=== PATIENT | female | born 1945 | race Caucasian/White ===

== ENCOUNTER 2021-08-16 13:30 | Observation (INO) ==
[2021-08-16 16:16] LABS: Basophils % 0.2 % (0.0-0.8); Eosinophils # 0.1 10*3/uL (0.0-0.87); Eosinophils % 0.3 % (0.00-10.9); Hematocrit 31.9 VOL% (35.7-47.0); Hemoglobin 10.7 GM/DL (12.0-16.0); Immature Granulocytes % 0.5 %; Immature Granulocytes Absolute 0.08 #; Lymphocytes # 1.1 10*3/uL (1.4-4.0); Lymphocytes % 7.2 % (21.3-54.2); Mean Corpuscular HGB Conc 33.5 GM/DL (32-36); Mean Corpuscular Volume 100.3 FL (87-102); Mean Platelet Volume 10.9 FL (9.6-12.0); Monocytes % 8.7 % (1.7-12.7); Neutrophils % 83.1 % (38.7-73.9); Platelet Count 71 T/CUMM (130-400); Red Blood Count 3.18 MC/CUMM (3.8-5.5); Red Cell Distribution Width 16.3 % (9.3-17.3); White Blood Count 15.8 T/CUMM (4-12)
[2021-08-16 16:38] LABS: Albumin 2.5 G/DL (3.4-5.0); Bilirubin,Total 2.4 MG/DL (0.20-1.00); Potassium 2.8 MMOL/L (3.5-5.1)
[2021-08-16] MEDS ORDERED: POTASSIUM CHLORIDE 20 MEQ TABLET PO STA (16:53)
[2021-08-16 17:10] LABS: Mucus,Urine Occasional /LPF (Occasional); RBC,Urine 1 /HPF (0-4); Squamous Epithelial Cell,Urine Occasional /HPF (0-10)
[2021-08-16 17:11] LABS: Bilirubin,Urine Negative (Negative); Blood, Urine Trace mg/dL (Negative); Glucose,Urine (UA) Negative (Negative); Ketones,Urine Negative (Negative); Nitrite,Urine Negative (Negative); Protein,Urine Negative; Urine Appearance Clear (Clear); Urine Color Dark yellow (Yellow); Urine Urobilinogen < 2.0 EU/DL (<2.0); Urine pH 6.5 (4.5-8.0)
[2021-08-16] MEDS ORDERED: ONDANSETRON 4 MG/2 ML VIAL IV PRN (17:15)
[2021-08-16] MEDS ORDERED: ACETAMINOPHEN 325 MG TABLET PO PRN (17:15)
[2021-08-16 18:07] LABS: Anisocytosis Slight; Macrocytosis Slight; Poikilocytosis Few; Schistocytes Few
[2021-08-16 18:08] LABS: Elliptocytes Few; Platelet Estimate Decreased; Polychromasia Few
[2021-08-16] MEDS: LEVOFLOXACIN INJ 500 MG/100 ML PREMIX IV SCH (18:12)
[2021-08-16] MEDS: SODIUM CHLORIDE 0.9% 1,000 ML IV SCH (18:12)
[2021-08-16] MEDS: ENOXAPARIN 40 MG/0.4 ML SYRINGE SUBCUT SCH (18:12)
[2021-08-16] MEDS ORDERED: INFLUENZA VIRUS VACCINE 0.5 ML SYRINGE IM ONE (23:00)
[2021-08-17] MEDS: SODIUM CHLORIDE 0.9% 1,000 ML IV SCH ×3 (04:20→17:11)
[2021-08-17 05:42] LABS: Basophils % 0.2 % (0.0-0.8); Eosinophils # 0.2 10*3/uL (0.0-0.87); Eosinophils % 2.1 % (0.00-10.9); Hematocrit 30.2 VOL% (35.7-47.0); Hemoglobin 10.2 GM/DL (12.0-16.0); Immature Granulocytes % 0.4 %; Immature Granulocytes Absolute 0.04 #; Lymphocytes # 1.2 10*3/uL (1.4-4.0); Lymphocytes % 13.8 % (21.3-54.2); Mean Corpuscular HGB Conc 33.8 GM/DL (32-36); Mean Corpuscular Volume 101.7 FL (87-102); Mean Platelet Volume 11.4 FL (9.6-12.0); Monocytes % 8.7 % (1.7-12.7); Neutrophils % 74.8 % (38.7-73.9); Platelet Count 64 T/CUMM (130-400); Red Blood Count 2.97 MC/CUMM (3.8-5.5); Red Cell Distribution Width 16.5 % (9.3-17.3); White Blood Count 8.9 T/CUMM (4-12)
[2021-08-17 05:50] LABS: Calcium 8.7 MG/DL (8.5-10.1); Osmolality,Calculated 285.7 MOS/KG (273-304); Potassium 2.9 MMOL/L (3.5-5.1)
[2021-08-17 06:27] LABS: Hypochromia Slight; Microcytosis Slight
[2021-08-17] MEDS: PANTOPRAZOLE 40 MG TABLET PO SCH (08:07)
[2021-08-17] MEDS ORDERED: CHLORPHENIRAMINE PHENYLEPHRINE PO PRN (08:24)
[2021-08-17] MEDS ORDERED: ALBUTEROL 2.5 MG/3 ML NEB RESP TX PRN (08:24)
[2021-08-17] MEDS ORDERED: CARBOXYMETHYLCELLULOSE 1% OPH SOLN BOTH EYES PRN (08:24)
[2021-08-17] MEDS ORDERED: DICLOFENAC 1% GEL 100 GM TUBE TOP PRN (08:24)
[2021-08-17] MEDS ORDERED: METHOTREXATE 2.5 MG TABLET PO SCH (09:00)
[2021-08-17] MEDS ORDERED: NF- (Turmeric Root Extract 500 mg Capsule) PO SCH (09:00)
[2021-08-17] MEDS: MULTIVITAMIN (BEROCCA) TABLET PO SCH (10:48)
[2021-08-17] MEDS: CHOLECALCIFEROL 1,000 UNIT TABLET PO SCH (10:48)
[2021-08-17] MEDS: FOLIC ACID 1 MG TABLET PO SCH (10:48)
[2021-08-17] MEDS: FLUDROCORTISONE 0.1 MG TABLET PO SCH (10:49)
[2021-08-17] MEDS: MAGNESIUM OXIDE 400 MG TABLET PO SCH (10:49)
[2021-08-17] MEDS: LEVOTHYROXINE 100 MCG TABLET PO SCH (10:49)
[2021-08-17] MEDS: OMEGA 3 ACID ETHYL ESTERS 1 GM CAPSULE PO SCH (10:50)
[2021-08-17] MEDS: FLUTICASONE/SALMETEROL 250-50 DISKUS 14 DOSE INH SCH ×2 (10:50→21:44)
[2021-08-17] MEDS: MULTIVITAMIN PO SCH (10:53)
[2021-08-17] MEDS: POTASSIUM CHLORIDE 20 MEQ TABLET PO PRN ×2 (14:48→17:32)
[2021-08-17] MEDS: ENOXAPARIN 40 MG/0.4 ML SYRINGE SUBCUT SCH (17:32)
[2021-08-17] MEDS: LEVOFLOXACIN INJ 500 MG/100 ML PREMIX IV SCH (17:33)
[2021-08-18] MEDS: SODIUM CHLORIDE 0.9% 1,000 ML IV SCH (01:11)
[2021-08-18 08:16] VITALS: BP 138/60
[2021-08-18] MEDS: FLUDROCORTISONE 0.1 MG TABLET PO SCH (09:39)
[2021-08-18] MEDS: CHOLECALCIFEROL 1,000 UNIT TABLET PO SCH (09:39)
[2021-08-18] MEDS: POTASSIUM CHLORIDE 20 MEQ TABLET PO PRN ×3 (09:40→11:00)
[2021-08-18] MEDS: MULTIVITAMIN (BEROCCA) TABLET PO SCH (09:40)
[2021-08-18] MEDS: MAGNESIUM OXIDE 400 MG TABLET PO SCH (09:40)
[2021-08-18] MEDS: LEVOTHYROXINE 100 MCG TABLET PO SCH (09:40)
[2021-08-18] MEDS: OMEGA 3 ACID ETHYL ESTERS 1 GM CAPSULE PO SCH (09:40)
[2021-08-18] MEDS: FOLIC ACID 1 MG TABLET PO SCH (09:40)
[2021-08-18] MEDS: PANTOPRAZOLE 40 MG TABLET PO SCH (09:40)
[2021-08-18] MEDS: FLUTICASONE/SALMETEROL 250-50 DISKUS 14 DOSE INH SCH (09:41)
[2021-08-18] MEDS: MULTIVITAMIN PO SCH (12:00)
== END 2021-08-18 11:16 | disposition home or self-care (01) ==
LOC: EDUNIT# → EDBD → N.TELES 13:30 → N.ED 13:30 → N.TELES 22:24
PROVIDERS: ADMIT Family Medicine; ATTEND Family Medicine

== ENCOUNTER 2022-06-24 09:48 | Inpatient (IN) ==
[2022-06-24 10:06] LABS: Bilirubin,Urine Negative (Negative); Blood, Urine Negative (Negative); Glucose,Urine (UA) Negative (Negative); Ketones,Urine Negative (Negative); Nitrite,Urine Negative (Negative); Protein,Urine Negative (Negative); Urine Appearance Slightly Cloudy (Clear); Urine Color Dark Yellow (Yellow); Urine pH 7.5 (4.5-8.0)
[2022-06-24] MEDS ORDERED: SODIUM CHLORIDE 0.9% 1,000 ML IV STA (10:06)
[2022-06-24 10:08] LABS: Mucus,Urine Occasional /LPF (Occasional); RBC,Urine 2 /HPF (0-4)
[2022-06-24 10:23] LABS: Basophils % 0.2 % (0.0-0.8); Eosinophils # 0.1 10*3/uL (0.0-0.87); Eosinophils % 0.5 % (0.00-10.9); Hematocrit 36.6 VOL% (35.7-47.0); Hemoglobin 12.1 GM/DL (12.0-16.0); Immature Granulocytes % 0.7 %; Immature Granulocytes Absolute 0.06 #; Lymphocytes # 0.9 10*3/uL (1.4-4.0); Lymphocytes % 9.4 % (21.3-54.2); Mean Corpuscular HGB Conc 33.1 GM/DL (32-36); Mean Corpuscular Volume 100.5 FL (87-102); Mean Platelet Volume 11.6 FL (9.6-12.0); Monocytes # 0.8 10*3/uL (0.11-0.8); Monocytes % 8.7 % (1.7-12.7); Neutrophils % 80.5 % (38.7-73.9); Red Blood Count 3.64 MC/CUMM (3.8-5.5); Red Cell Distribution Width 15.3 % (9.3-17.3); White Blood Count 9.2 T/CUMM (4-12)
[2022-06-24 10:24] LABS: Platelet Count 71 T/CUMM (130-400)
[2022-06-24 10:42] LABS: Albumin 2.8 G/DL (3.4-5.0); Calcium 8.9 MG/DL (8.5-10.1); Osmolality,Calculated 288.6 MOS/KG (273-304); Potassium 3.8 MMOL/L (3.5-5.1); Total Protein 5.3 G/DL (6.4-8.2)
[2022-06-24 10:42] LABS: Barbiturates Screen,Urine Negative (Negative); Benzodiazepines Screen,Urine Negative (Negative); Cannabinoid Screen,Urine Negative (Negative); Opiate Screen,Urine Negative (Negative); Phencyclidine Screen,Urine Negative (Negative)
[2022-06-24 10:53] LABS: INR 1.5; PT Patient Result 16.1 SECS (10.1-12.1)
[2022-06-24] MEDS ORDERED: VANCOMYCIN INJ 1,000 MG in SODIUM CHLORIDE 0.9% 250 ML IV STA (11:08)
[2022-06-24] MEDS ORDERED: CEFEPIME 1,000 MG in SODIUM CHLORIDE 0.9% 100 ML IV STA (11:08)
[2022-06-24] MEDS ORDERED: ONDANSETRON 4 MG/2 ML VIAL IV PRN (11:40)
[2022-06-24] MEDS ORDERED: PROMETHAZINE 25 MG/1 ML VIAL IM PRN (11:40)
[2022-06-24] MEDS ORDERED: ACETAMINOPHEN 325 MG TABLET PO PRN (11:40)
[2022-06-24] MEDS: SODIUM CHLORIDE 0.9% 1,000 ML IV SCH (13:07)
[2022-06-24] MEDS ORDERED: VANCOMYCIN INJ 1,000 MG in SODIUM CHLORIDE 0.9% 250 ML IV ONE (14:30)
[2022-06-24] MEDS: DOCUSATE SODIUM 100 MG CAPSULE PO SCH (21:08)
[2022-06-24] MEDS ORDERED: ALBUTEROL/IPRATROPIUM 3 ML NEB RESP TX ONE (22:50)
[2022-06-25] MEDS: ALBUTEROL/IPRATROPIUM 3 ML NEB RESP TX SCH ×4 (00:08→19:45)
[2022-06-25] MEDS: SODIUM CHLORIDE 0.9% 1,000 ML IV SCH ×3 (00:11→23:57)
[2022-06-25] MEDS: methylPREDNISolone SOD SUC 40 MG/1 ML VIAL IV SCH ×3 (00:42→22:58)
[2022-06-25] MEDS: MEROPENEM 500 MG in SODIUM CHLORIDE 0.9% 100 ML IV SCH ×4 (00:42→23:58)
[2022-06-25 05:09] LABS: Basophils % 0.3 % (0.0-0.8); Hemoglobin 11.6 GM/DL (12.0-16.0); Immature Granulocytes % 0.8 %; Immature Granulocytes Absolute 0.03 #; Lymphocytes # 0.4 10*3/uL (1.4-4.0); Lymphocytes % 11.3 % (21.3-54.2); Mean Corpuscular HGB Conc 33.1 GM/DL (32-36); Mean Corpuscular Volume 99.4 FL (87-102); Mean Platelet Volume 11.8 FL (9.6-12.0); Monocytes # 0.2 10*3/uL (0.11-0.8); Monocytes % 4.3 % (1.7-12.7); Neutrophils % 82.3 % (38.7-73.9); Red Blood Count 3.52 MC/CUMM (3.8-5.5); White Blood Count 3.9 T/CUMM (4-12)
[2022-06-25 05:10] LABS: Platelet Count 62 T/CUMM (130-400)
[2022-06-25 05:23] LABS: Albumin 2.8 G/DL (3.4-5.0); Bilirubin,Total 2.6 MG/DL (0.20-1.00); Calcium 9.1 MG/DL (8.5-10.1); Osmolality,Calculated 287.7 MOS/KG (273-304); Potassium 3.6 MMOL/L (3.5-5.1); Total Protein 5.3 G/DL (6.4-8.2)
[2022-06-25 05:28] LABS: Platelet Estimate Decreased
[2022-06-25] MEDS: LEVOTHYROXINE 100 MCG TABLET PO SCH (06:20)
[2022-06-25] MEDS: FUROSEMIDE 20 MG/2 ML VIAL IV SCH (09:01)
[2022-06-25] MEDS: FLUTICASONE/SALMETEROL 250-50 DISKUS 14 DOSE INH SCH ×2 (09:02→21:51)
[2022-06-25] MEDS: FLUDROCORTISONE 0.1 MG TABLET PO SCH (09:02)
[2022-06-25] MEDS: PANTOPRAZOLE 40 MG TABLET PO SCH (09:02)
[2022-06-25] MEDS: DOCUSATE SODIUM 100 MG CAPSULE PO SCH ×2 (09:02→21:49)
[2022-06-25] MEDS: POTASSIUM CHLORIDE 20 MEQ TABLET PO SCH ×2 (09:02→21:49)
[2022-06-25] MEDS: SERTRALINE 50 MG TABLET PO SCH (09:02)
[2022-06-26] MEDS: ALBUTEROL/IPRATROPIUM 3 ML NEB RESP TX SCH ×4 (03:23→19:46)
[2022-06-26 05:21] LABS: Hematocrit 31.5 VOL% (35.7-47.0); Hemoglobin 10.6 GM/DL (12.0-16.0); Immature Granulocytes Absolute 0.05 #; Lymphocytes # 0.3 10*3/uL (1.4-4.0); Lymphocytes % 6.1 % (21.3-54.2); Mean Corpuscular HGB Conc 33.7 GM/DL (32-36); Mean Corpuscular Volume 98.7 FL (87-102); Mean Platelet Volume 10.6 FL (9.6-12.0); Monocytes # 0.2 10*3/uL (0.11-0.8); Monocytes % 3.5 % (1.7-12.7); Neutrophils % 89.4 % (38.7-73.9); Platelet Count 69 T/CUMM (130-400); Red Blood Count 3.19 MC/CUMM (3.8-5.5); Red Cell Distribution Width 14.8 % (9.3-17.3); White Blood Count 4.9 T/CUMM (4-12)
[2022-06-26 05:36] LABS: Calcium 9.2 MG/DL (8.5-10.1); Potassium 4.2 MMOL/L (3.5-5.1)
[2022-06-26 05:44] LABS: Platelet Estimate Decreased
[2022-06-26] MEDS: LEVOTHYROXINE 100 MCG TABLET PO SCH (05:57)
[2022-06-26] MEDS: SODIUM CHLORIDE 0.9% 1,000 ML IV SCH ×3 (07:07→15:07)
[2022-06-26] MEDS: FLUTICASONE/SALMETEROL 250-50 DISKUS 14 DOSE INH SCH ×2 (09:32→20:53)
[2022-06-26] MEDS: DOCUSATE SODIUM 100 MG CAPSULE PO SCH ×2 (09:33→20:53)
[2022-06-26] MEDS: POTASSIUM CHLORIDE 20 MEQ TABLET PO SCH ×2 (09:33→20:53)
[2022-06-26] MEDS: FLUDROCORTISONE 0.1 MG TABLET PO SCH (09:33)
[2022-06-26] MEDS: FUROSEMIDE 20 MG/2 ML VIAL IV SCH (09:33)
[2022-06-26] MEDS: SERTRALINE 50 MG TABLET PO SCH (09:33)
[2022-06-26] MEDS: PANTOPRAZOLE 40 MG TABLET PO SCH (09:33)
[2022-06-26] MEDS: MEROPENEM 500 MG in SODIUM CHLORIDE 0.9% 100 ML IV SCH ×3 (10:49→21:00)
[2022-06-26] MEDS: methylPREDNISolone SOD SUC 40 MG/1 ML VIAL IV SCH ×2 (14:20→23:06)
[2022-06-26 19:55] LABS: Glucose,Pleural Fluid 138 MG/DL; LDH,Body Fluid 96 U/L; Total Protein,Body Fluid < 2.0 G/DL
[2022-06-26 20:05] LABS: Lymphocytes,Pleural Fluid 15 %; Monocytes,Pleural Fluid 18 %; Neutrophils,Pleural Fluid 67 %; RBC,Pleural Fluid 69866 T/CUMM
[2022-06-27] MEDS: ALBUTEROL/IPRATROPIUM 3 ML NEB RESP TX SCH ×4 (00:37→19:42)
[2022-06-27] MEDS: SODIUM CHLORIDE 0.9% 1,000 ML IV SCH ×2 (02:31→16:29)
[2022-06-27] MEDS: MEROPENEM 500 MG in SODIUM CHLORIDE 0.9% 100 ML IV SCH ×4 (02:32→21:13)
[2022-06-27] MEDS: LEVOTHYROXINE 100 MCG TABLET PO SCH (05:13)
[2022-06-27] MEDS: methylPREDNISolone SOD SUC 40 MG/1 ML VIAL IV SCH ×2 (09:45→21:15)
[2022-06-27] MEDS: POTASSIUM CHLORIDE 20 MEQ TABLET PO SCH ×2 (09:45→21:14)
[2022-06-27] MEDS: DOCUSATE SODIUM 100 MG CAPSULE PO SCH ×2 (09:45→21:14)
[2022-06-27] MEDS: PANTOPRAZOLE 40 MG TABLET PO SCH (09:46)
[2022-06-27] MEDS: SERTRALINE 50 MG TABLET PO SCH (09:46)
[2022-06-27] MEDS: FLUDROCORTISONE 0.1 MG TABLET PO SCH (09:46)
[2022-06-27] MEDS: FUROSEMIDE 20 MG/2 ML VIAL IV SCH (09:47)
[2022-06-27] MEDS: FLUTICASONE/SALMETEROL 250-50 DISKUS 14 DOSE INH SCH ×2 (09:48→21:14)
[2022-06-27] MEDS ORDERED: ZINC OXIDE PASTE 113 GM TUBE TOP PRN (13:29)
[2022-06-27 13:59] LABS: Folate 10.78 NG/ML (5.38-24.0)
[2022-06-27] MEDS: cycloSPORINE OPH EMUL 1 VIAL BOTH EYES SCH (16:27)
[2022-06-27] MEDS: DICLOFENAC 1% GEL 100 GM TUBE TOP SCH ×3 (16:28→21:14)
[2022-06-28] MEDS: cycloSPORINE OPH EMUL 1 VIAL BOTH EYES SCH ×2 (00:09→12:02)
[2022-06-28] MEDS: ALBUTEROL/IPRATROPIUM 3 ML NEB RESP TX SCH ×4 (00:15→19:18)
[2022-06-28] MEDS: LORazepam 2 MG/1 ML VIAL IV PRN (02:38)
[2022-06-28] MEDS: MEROPENEM 500 MG in SODIUM CHLORIDE 0.9% 100 ML IV SCH ×4 (02:38→20:56)
[2022-06-28] MEDS: SODIUM CHLORIDE 0.9% 1,000 ML IV SCH ×2 (08:55→09:56)
[2022-06-28] MEDS: FUROSEMIDE 20 MG/2 ML VIAL IV SCH (08:56)
[2022-06-28] MEDS: methylPREDNISolone SOD SUC 40 MG/1 ML VIAL IV SCH ×2 (08:57→20:54)
[2022-06-28] MEDS: FLUTICASONE/SALMETEROL 250-50 DISKUS 14 DOSE INH SCH ×2 (09:00→20:55)
[2022-06-28] MEDS: DICLOFENAC 1% GEL 100 GM TUBE TOP SCH ×4 (09:00→20:56)
[2022-06-28] MEDS: POTASSIUM CHLORIDE 20 MEQ TABLET PO SCH ×2 (09:01→20:54)
[2022-06-28] MEDS: SERTRALINE 50 MG TABLET PO SCH (09:01)
[2022-06-28] MEDS: FLUDROCORTISONE 0.1 MG TABLET PO SCH (09:01)
[2022-06-28] MEDS: PANTOPRAZOLE 40 MG TABLET PO SCH (09:01)
[2022-06-28] MEDS: FOLIC ACID 1 MG TABLET PO SCH (09:01)
[2022-06-28] MEDS: DOCUSATE SODIUM 100 MG CAPSULE PO SCH ×2 (09:01→20:54)
[2022-06-28] MEDS: LEVOTHYROXINE 100 MCG TABLET PO SCH (09:01)
[2022-06-29] MEDS: LORazepam 2 MG/1 ML VIAL IV PRN (00:37)
[2022-06-29] MEDS: ALBUTEROL/IPRATROPIUM 3 ML NEB RESP TX SCH ×3 (00:43→07:33)
[2022-06-29] MEDS: cycloSPORINE OPH EMUL 1 VIAL BOTH EYES SCH (01:44)
[2022-06-29] MEDS: MEROPENEM 500 MG in SODIUM CHLORIDE 0.9% 100 ML IV SCH ×2 (03:17→09:45)
[2022-06-29] MEDS: LEVOTHYROXINE 100 MCG TABLET PO SCH (06:18)
[2022-06-29] MEDS ORDERED: FUROSEMIDE 40 MG/4 ML VIAL IV SCH (09:00)
[2022-06-29] MEDS: DICLOFENAC 1% GEL 100 GM TUBE TOP SCH (09:45)
[2022-06-29] MEDS: FLUTICASONE/SALMETEROL 250-50 DISKUS 14 DOSE INH SCH (09:45)
[2022-06-29] MEDS: FLUDROCORTISONE 0.1 MG TABLET PO SCH (09:47)
[2022-06-29] MEDS: FOLIC ACID 1 MG TABLET PO SCH (09:47)
[2022-06-29] MEDS: POTASSIUM CHLORIDE 20 MEQ TABLET PO SCH (09:47)
[2022-06-29] MEDS: methylPREDNISolone SOD SUC 40 MG/1 ML VIAL IV SCH (09:48)
[2022-06-29] MEDS: DOCUSATE SODIUM 100 MG CAPSULE PO SCH (09:49)
[2022-06-29] MEDS: SERTRALINE 50 MG TABLET PO SCH (09:49)
[2022-06-29] MEDS: PANTOPRAZOLE 40 MG TABLET PO SCH (09:50)
[2022-06-29] MEDS ORDERED: TUBERCULIN SKIN TEST 0.1 ML SYRINGE INTRADERM ONE (11:00)
[2022-06-29 12:30] VITALS: BP 142/65
[2022-07-01] MEDS ORDERED: METHOTREXATE 2.5 MG TABLET PO SCH (09:00)
== END 2022-06-29 13:15 | DRG 186 ==
LOC: N.ED 09:48 → N.EDINP 11:40 → N.2E 12:43
PROVIDERS: ADMIT Family Medicine; ATTEND Family Medicine